=== PATIENT | male | born 1955 | race Caucasian/White ===

== ENCOUNTER 2017-01-12 10:25 | Inpatient (IN) | payer OTHER ==
[~2017-01-12] VITALS: Ht 170.2 cm; Wt 96.8 kg
[2017-01-12] MEDS ORDERED: ASPIRIN 32325 MG/TAB PO (13:03)
[2017-01-12] MEDS ORDERED: LIPITOR 40MG TA40 MG PO (13:04)
[2017-01-12] MEDS ORDERED: BETIMOL 10 ML10 ML OU (13:04)
[2017-01-12] MEDS ORDERED: VANTIN 200200 MG/TAB PO (13:05)
[2017-01-12] MEDS ORDERED: LANOXIN 0.25M0.25 MG PO (13:05)
[2017-01-12] MEDS ORDERED: LOPID 600M600 MG/TAB PO (13:06)
[2017-01-12] MEDS ORDERED: DOXYCYCLINE 10100 MG PO (13:06)
[2017-01-12] MEDS ORDERED: LASIX 20MG TABL20 MG PO (13:06)
[2017-01-12] MEDS ORDERED: DIABETA 5MG5 MG/TAB PO (13:07)
[2017-01-12] MEDS ORDERED: GLUCOPHAGE500 MG/TAB PO (13:08)
[2017-01-12] MEDS ORDERED: ZESTRIL 20MG TA20 MG PO (13:08)
[2017-01-12] MEDS ORDERED: NORCO 325 MG-51 TAB PO (13:08)
[2017-01-12] MEDS ORDERED: NORCO 325 MG-7.1 TAB PO (13:09)
[2017-01-12] MEDS ORDERED: POTASSIUM PO (13:10)
[2017-01-12] MEDS ORDERED: XALATAN EYE DROPS OU (13:10)
[2017-01-13] VITALS (11 sets, daily range): BP systolic 95–121; BP diastolic 51–61; PULSE 61–76; TEMP 98–98.6
[2017-01-13] MEDS ORDERED: TOPROL XL 25MG25 MG PO (05:28)
[2017-01-13] MEDS ORDERED: ASPIRIN 81M81 MG/TA2 PO (05:32)
[2017-01-13 06:06] LABS: ALBUMIN 2.9 gm/dL (3.5-5.0); BILIRUBIN,TOTAL 0.8 mg/dL (0.0-1.0); CALCIUM 9.1 mg/dL (8.4-10.2); CREATININE, serum 0.68 mg/dL (0.66-1.25); POTASSIUM 4.2 mmol/L (3.4-5.0); TOTAL PROTEIN 6.3 gm/dL (6.4-8.2)
[2017-01-13 06:12] LABS: HEMOGLOBIN 12.1 g/dl (13.5-18.0); MEAN CELL VOLUME 89 fl (80.0-100.0); MEAN CORPUSCULAR HEMOGLOBIN 31 pg (27.0-31.0); MEAN CORPUSCULAR HGB CONC 35 g/dl (33.0-37.0); MEAN PLATELET VOLUME 8.8 fl (7.4-10.4); PLATELET COUNT 420 K/mm3 (130-400); RED BLOOD COUNT 3.95 M/mm3 (4.20-5.60); REDCELL DISTRIBUTION WIDTH-CV 12.2 % (11.5-14.5); WHITE BLOOD COUNT 6.7 K/mm3 (4.8-10.8)
[2017-01-13 06:15] LABS: INR 1.4 (0.8-3.0); PROTHROMBIN TIME 15.6 SECONDS (9.7-12.8)
[2017-01-13 21:20] LABS: PH 6 (5-8); SQUAMOUS EPITHELIAL None Seen /hpf; URINE APPEARANCE Clear; URINE BACTERIA None Seen /hpf; URINE BILIRUBIN Negative (NEGATIVE); URINE BLOOD Negative (NEGATIVE); URINE COLOR Yellow; URINE GLUCOSE 2+ (NEGATIVE); URINE KETONE Negative (NEGATIVE); URINE UROBILINOGEN Negative (NEGATIVE); URINE WBC 0-2 /hpf
[2017-01-14 00:39] VITALS: BP 146/67; PULSE 85; TEMP 98.6
[2017-01-14 04:01] VITALS: BP 147/68; PULSE 88; TEMP 98.5
[2017-01-14 07:53] LABS: CALCIUM 6.8 mg/dL (8.4-10.2); CREATININE, serum 0.4 mg/dL (0.66-1.25); POTASSIUM 3.4 mmol/L (3.4-5.0)
[2017-01-14 08:00] VITALS: BP 139/67; PULSE 74; TEMP 97.8
[2017-01-14 08:01] LABS: HEMOGLOBIN 9.2 g/dl (13.5-18.0)
[2017-01-14 11:52] LABS: HEMOGLOBIN 9.2 g/dl (13.5-18.0)
[2017-01-14 11:55] LABS: BASO % 0.3 % (0.0-2.0); EOS # 0.1 (0.0-0.7); EOS % 0.7 % (0-4.0); GRAN # 5.8 (1.4-6.5); GRAN % 79.6 % (42.2-75.2); LYMPH # 0.9 (1.2-3.4); LYMPH % 12.8 % (20.0-51.0); MEAN CELL VOLUME 90 fl (80.0-100.0); MEAN CORPUSCULAR HEMOGLOBIN 31 pg (27.0-31.0); MEAN CORPUSCULAR HGB CONC 34 g/dl (33.0-37.0); MEAN PLATELET VOLUME 9.3 fl (7.4-10.4); MONO # 0.4 (0.1-0.6); MONO % 5.9 % (1.7-9.3); PLATELET COUNT 322 K/mm3 (130-400); RED BLOOD COUNT 3.01 M/mm3 (4.20-5.60); REDCELL DISTRIBUTION WIDTH-CV 12.6 % (11.5-14.5); WHITE BLOOD COUNT 7.3 K/mm3 (4.8-10.8)
[2017-01-14 12:00] VITALS: BP 152/69; PULSE 80
[2017-01-14 15:47] VITALS: BP 114/60; PULSE 71; TEMP 97.6
[2017-01-14 20:16] VITALS: BP 106/52; PULSE 65; TEMP 98.2
[2017-01-15 00:51] VITALS: BP 104/53; PULSE 64; TEMP 96.9
[2017-01-15 04:36] VITALS: BP 104/41; PULSE 61; TEMP 97
[2017-01-15 06:23] LABS: CALCIUM 8.3 mg/dL (8.4-10.2); CREATININE, serum 0.46 mg/dL (0.66-1.25); POTASSIUM 3.7 mmol/L (3.4-5.0)
[2017-01-15 06:25] LABS: HEMOGLOBIN 9.9 g/dl (13.5-18.0)
[2017-01-15 08:00] VITALS: BP 126/46; BP 157/80; PULSE 54; PULSE 65; TEMP 97.6; TEMP 97.9
[2017-01-15] MEDS ORDERED: NS INT FLUSH 1010 ML IV (09:26)
[2017-01-15] MEDS ORDERED: HEPARIN LOCK FLU5 M1 IV (09:26)
[2017-01-15] MEDS ORDERED: ROCEPHIN 2GM VIAL21 IV (10:21)
[2017-01-15] MEDS ORDERED: CUBICIN 500MG500 MG IV (10:21)
[2017-01-15 11:48] VITALS: BP 122/63; PULSE 65; TEMP 98
== END 2017-01-15 14:38 | disposition home health service (06) | DRG 467 ==
LOC: JCC 01-13 04:52 → SURG 01-13 07:30 → JCC 01-15 14:38
PROVIDERS: Nurse Practitioner Family; Orthopaedic Surgery; Physician Assistant
PROC: 0SPC0JZ Removal of Synthetic Substitute from Right Knee Joint, Open Approach (ICD-10-PCS; 2017-01-13)
PROC: 0SHC08Z Insertion of Spacer into Right Knee Joint, Open Approach (ICD-10-PCS; 2017-01-13)
PROC: 0SRC0J9 Replacement of Right Knee Joint with Synthetic Substitute, Cemented, Open Approach (ICD-10-PCS; principal; 2017-01-13 07:30)
DX: T84.53XA Infection and inflammatory reaction due to internal right knee prosthesis, initial encounter (principal); E87.1 Hypo-osmolality and hyponatremia; D62 Acute posthemorrhagic anemia; E11.9 Type 2 diabetes mellitus without complications; I10 Essential (primary) hypertension; I25.10 Atherosclerotic heart disease of native coronary artery without angina pectoris; Z95.1 Presence of aortocoronary bypass graft; Z95.5 Presence of coronary angioplasty implant and graft; Z87.891 Personal history of nicotine dependence
CPT/HCPCS: 99223; 99232-AI; C1713; C1751; C1776; J0360; J0696; J0878; J1170; J1644; J1815; J2250; J2270; J2274; J2405; J2704; J3010; J3260; J3370; J7030; J7040; J7050

== ENCOUNTER → 2017-02-09 | Outpatient (REF) ==
[~2017-02-09] MED LIST: ASPIRIN 32325 MG/TAB PO; ASPIRIN 81M81 MG/TA2 PO; BETIMOL 10 ML10 ML OU; CUBICIN 500MG500 MG IV; DIABETA 5MG5 MG/TAB PO; DOXYCYCLINE 10100 MG PO; GLUCOPHAGE500 MG/TAB PO; HEPARIN LOCK FLU5 M1 IV; LANOXIN 0.25M0.25 MG PO; LASIX 20MG TABL20 MG PO; LIPITOR 40MG TA40 MG PO; LOPID 600M600 MG/TAB PO; NORCO 325 MG-51 TAB PO; NORCO 325 MG-7.1 TAB PO; NS INT FLUSH 1010 ML IV; POTASSIUM PO; ROCEPHIN 2GM VIAL21 IV; TOPROL XL 25MG25 MG PO; VANTIN 200200 MG/TAB PO; XALATAN EYE DROPS OU; ZESTRIL 20MG TA20 MG PO
== END ==
LOC: ZAIV 06:10
DX: Z01.89 Encounter for other specified special examinations (principal)

== ENCOUNTER → 2017-04-28 | Outpatient (CLI) | payer OTHER | LOC: COL.LAB 14:39 | DX: Z01.812 Encounter for preprocedural laboratory examination (principal) ==